=== PATIENT | female | born 1970 | race African-American/Black ===

== ENCOUNTER 2017-11-08 10:51 | Emergency (ER) | payer MEDICAID, OTHER ==
[~2017-11-08] VITALS: Ht 170.2 cm; Wt 81.0 kg
[2017-11-08] MEDS ORDERED: KETOROLAC 60MG/2ML VIAL IM ONE (14:30)
[2017-11-08 15:35] VITALS: BP 118/84
== END 2017-11-08 15:38 | disposition home or self-care (01) ==
LOC: ER 11:37
DX: M79.641 Pain in right hand (principal); W20.8XXA Other cause of strike by thrown, projected or falling object, initial encounter; Y93.89 Activity, other specified; Y92.9 Unspecified place or not applicable; Z88.0 Allergy status to penicillin
CPT/HCPCS: 29130; 73130; 96372; 99284; J1885